=== PATIENT | female | born 1965 | race Caucasian/White ===

== ENCOUNTER 2016-11-30 22:51 | Emergency (ER) | payer OTHER ==
[2016-11-30 23:22] LABS: APPEARANCE CLEAR (CLEAR); BILIRUBIN NEGATIVE (NEGATIVE); COLOR YELLOW (YELLOW); GLUCOSE NEGATIVE (NEGATIVE); KETONE NEGATIVE (NEGATIVE); LEUKOCYTE ESTERASE NEGATIVE (NEGATIVE); NITRITE NEGATIVE (NEGATIVE); PROTEIN NEGATIVE (NEGATIVE); SPECIFIC GRAVITY 1.015 (1.005-1.020); UROBILINOGEN NORMAL (NORMAL)
[2016-11-30 23:22] LABS: BASOPHILS 0.3 % (0.0-2.0); HEMATOCRIT 41.2 % (36.0-48.0); HEMOGLOBIN 14.2 g/dL (12-16); IMMATURE GRANULOCYTES 0.2 % (0-5); LYMPHOCYTES 33.3 % (15-50); MCH 30.6 pg (26.0-34.0); MCHC 34.5 g/dL (31.0-37.0); MCV 88.8 fL (80.0-100.0); MEAN PLATELET VOLUME 9.9 fL (7.4-10.4); MONOCYTES 8.1 % (2-11); NEUTROPHILS 56.1 % (40-80); PLATELET COUNT 371 10x3/uL (130-400); RBC 4.64 10x6/uL (4.00-5.40); RDW 12.1 % (11.5-14.5); WBC 9.2 10x3/uL (4.8-10.8)
[2016-11-30 23:30] LABS: AMYLASE - SERUM 70 U/L (25-115); LIPASE 219 U/L (73-393)
== END 2016-12-01 00:25 | disposition home or self-care (01) ==
LOC: D.ER 22:51
PROVIDERS: Family Medicine
DX: K21.9 Gastro-esophageal reflux disease without esophagitis (principal); E11.9 Type 2 diabetes mellitus without complications; I10 Essential (primary) hypertension; E03.9 Hypothyroidism, unspecified

== ENCOUNTER 2017-03-13 06:35 | Day surgery (SDC) | payer BC ==
[~2017-03-13] VITALS: Ht 154.9 cm; Wt 74.8 kg
[2017-03-13 07:42] LABS: HEMATOCRIT 38.7 % (36.0-48.0); HEMOGLOBIN 13.1 g/dL (12-16); MCH 30.1 pg (26.0-34.0); MCHC 33.9 g/dL (31.0-37.0); MEAN PLATELET VOLUME 9.6 fL (7.4-10.4); RBC 4.35 10x6/uL (4.00-5.40); RDW 11.9 % (11.5-14.5); WBC 8.4 10x3/uL (4.8-10.8)
[2017-03-13 07:48] LABS: CALC OSMOLALITY 275 mosm/kg (275-300); CALCIUM 8.8 mg/dL (8.5-10.1); CARBON DIOXIDE 31.9 mmol/L (21.0-32.0); CHLORIDE - SERUM 100 mmol/L (98-107); CREATININE - SERUM 0.8 mg/dL (0.6-1.3); GLUCOSE 149 mg/dL (74-106); POTASSIUM - SERUM 3.6 mmol/L (3.5-5.1); SODIUM 136 mmol/L (136-145); UREA NITROGEN 15 mg/dL (7-18); eGFR NON AFRICAN AMERICAN 80 mL/min (90-120)
[2017-03-13] MEDS ORDERED: METFORMIN HCL500 M1 PO (08:01)
[2017-03-13] MEDS ORDERED: LISINOPRIL10 MG PO (08:02)
[2017-03-13] MEDS ORDERED: HCTZ25 MG PO (08:03)
[2017-03-13] MEDS ORDERED: TRI-EST (08:04)
[2017-03-13] MEDS ORDERED: SYNTHROID125 MCG PO (08:04)
[2017-03-13] MEDS ORDERED: PROZAC20 MG PO (08:05)
[2017-03-13] MEDS ORDERED: LIPITOR20 MG PO (08:05)
[2017-03-13] MEDS ORDERED: OMEPRAZOLE20 M1 PO (08:05)
[2017-03-13] MEDS ORDERED: PROBENECID500 MG PO (08:06)
[2017-03-13] MEDS ORDERED: VITAMIN D2000 UNIT (08:06)
[2017-03-13] MEDS ORDERED: MULTIPLE VITAMI1 TA1 PO (08:06)
[2017-03-13 08:13] VITALS: BP 116/84; Ht 154.9 cm; Wt 74.8 kg
--- NOTE | 2017-03-13 09:23 | NUR ---
NO COUNTS, PREP DONE R/T PROCEDURE. NO SCD R/T PROCEDURE
--- NOTE | 2017-03-13 09:29 | NUR ---
BOVIE PADS LEFT THIGH [id number] EXP [id number] EXP [id number]
--- NOTE | 2017-03-13 13:47 | NUR ---
1345--PT STATES THAT NAUSEA IS BETTER, LEMON PICAYUNE SODA GIVEN. WILL CONTINUE TO MONITOR. RAY RN
--- NOTE | 2017-03-13 15:12 | NUR ---
1510--PT VOIDS, IV SOCORRO'Carmen BELL RN
--- NOTE | 2017-03-13 15:18 | NUR ---
1230--PT OVER BASIN DRY HEAVING. DR SPARKS CONSULTED AND NEW ORDERS RECIEVED. RAY MARTINEZ 1240--DECADRON 10MG GIVEN SIVP OVER 5 MINUTES. RAY MARTINEZ 1245--PHENERGHAN 12.5MG GIVEN SIVP. RAY MARTINEZ
--- NOTE | 2017-03-13 15:42 | NUR ---
1535--DISCHARGE INSTRUCTIONS GIVEN, PT VERBALIZES UNDERSTANDING. PT OFF UNIT VIA CARRIE. RAY MARTINEZ
--- NOTE | 2017-03-20 09:43 | HP ---
PATIENT: ROCHELLE MALIK MEDICAL RECORD: [id number] ACCOUNT: [id number] LOCATION:DIndiaOPS : 67 ADMISSION DATE: 03/13/17 HISTORY AND PHYSICAL EXAMINATION HISTORY OF PRESENT ILLNESS: The patient has a gastric polypoid mass. I have reviewed the endoscopic photos. I have personally reviewed the endoscopic report. The risks, possible complications and alternatives to gastric polypectomy with the argon plasma chemical cell changer were explained to the patient. She elects to proceed. The discussion specifically included, but was not limited to, bleeding requiring emergency reoperation, infection, gastric perforation and possible need for additional operative procedure or endoscopic procedure. HOME MEDICINES: Metformin and also Synthroid. ALLERGIES: REGLAN AND DEMEROL. SOCIAL HISTORY: Nonsmoker. PAST MEDICAL AND SURGICAL HISTORY: Noninsulin-dependent diabetes mellitus, hypothyroidism, on replacement therapy, obesity, hysterectomy and gastric polyp. REVIEW OF SYSTEMS: Negative for CVA or seizures. Negative for renal disease or hepatitis. Review of systems is negative other than as is described above. PHYSICAL EXAMINATION: GENERAL: The patient does not appear acutely ill. She does not appear chronically ill. VITAL SIGNS: Reviewed. HEAD: External ears appear normal. EYES: Extraocular movements are intact. NECK: Trachea is midline. CHEST: No intercostal retractions. PULMONARY: Nonlabored, no stridor. ABDOMEN: Nontender. IMPRESSION: Gastric polyps, worrisome for malignancy. PLAN: As described above. TRANSINT:[id number] Voice Confirmation ID: [id number] DOCUMENT ID: [id number] CC: Mary Jo Grant [facility], [phone] HISTORY AND PHYSICAL [id number] ROCHELLE MALIK ROBERT MD at 0943 CC: MARIA ESTHER OHARA MD, MARY JO GRANT [facility] and JESSICA, [id number] DICTATION DATE: 03/13/17 1036 FIRE APPARATUS ENGINEER: 03/13/17 1155 [facility] 03/13/17 [address] [place] [address]
--- NOTE | 2017-03-20 09:43 | OP ---
PATIENT NAME: ROCHELLE MALIK MEDICAL RECORD: [id number] :67 LOCATION:D.[facility] ADMISSION DATE: SURGEON: CORBY CHAO MD DATE OF OPERATION: 03/13/2017 PREOPERATIVE DIAGNOSIS: Gastric polyps worrisome for a malignancy. POSTOPERATIVE DIAGNOSES: Gastric polyps worrisome for a malignancy with several diminutive sessile polyps as well all under 6 mm in size, also mild antral gastritis. PROCEDURES: 1. Esophagogastroduodenoscopy with biopsies. 2. Polypectomy with epinephrine injection at the base of the polyp, snare polypectomy, treatment of the base of the polyp with the argon plasma communications lead and reinforcement of the polypectomy site and hemostasis with 3 endoscopic clips, also endoscopic tattooing in order to better identify the polyp should a further operative procedure be necessary to resect the area if it proved to represent a malignancy. ENDOSCOPIC COURSE: The patient was conveyed to the endoscopy suite electively on 03/13/2017. General anesthesia was induced by anesthesia staff. A bite block was inserted. A gastroscope was inserted into the mouth. It was advanced easily into the hypopharynx. The esophagus was easily intubated as were the stomach and duodenum. Upon withdrawal, retroflexed and angulus views were obtained. Antral biopsies were obtained. I then identified the polyp. I advanced the sclerotherapy needle. An epinephrine injection of 3 cc epinephrine were used to get lift of the polyp away from the gastric wall and also for hemostasis. I then advanced an endoscopic snare. I then snared the polyp. I used the coagulation setting and then cut setting to remove the polyp. I then advanced an endoscopic retrieval net and retrieved the polyp in its entirety. The base of the polyp was ablated utilizing the argon plasma communications lead utilizing the stomach setting in the forced mode. I had to go cut deep in order to remove the entire polyp and there was some bleeding and for this reason, 3 endoscopic clips were used to close this weakened area in the gastric wall. It appeared that the polyp was along the greater curvature of the stomach and likely slightly anteriorly. In order to better identify it in the future, should an operative procedure be necessary. I advanced a sclerotherapy needle. I tattooed the base of the polyp with 3 cc of Denise ink. I then took the argon plasma communications lead. I coagulated 3 or 4 diminutive polyps without biopsying them. A retroflex view was obtained. I then unretroflexed the scope and removed it under direct vision. I will see the patient in my office in 2-3 weeks. At that time, we will review the results of the polypectomy. TRANSINT:[id number] Voice Confirmation ID: [id number] DOCUMENT ID: [id number] CC: Mary Jo Grant APN, [facility] [phone] OPERATIVE REPORT [id number] ROCHELLE MALIK, CORBY SAM at 0943 CC: MARIA ESTHER OHARA MD, MARY JO GRANT APN, [facility] and JESSICA, [id number] DICTATION DATE: 03/13/17 1041 GAUGE MACHINE OPERATOR: 03/13/17 1638 [facility] 03/13/17 [address] [place] [address]
== END 2017-03-13 15:35 | disposition home or self-care (01) ==
LOC: D.OPS 06:35 → D.PAN 09:00 → D.OPS 10:30
PROVIDERS: Anesthesiology
DX: K31.7 Polyp of stomach and duodenum (principal); K29.50 Unspecified chronic gastritis without bleeding; E11.9 Type 2 diabetes mellitus without complications; E03.9 Hypothyroidism, unspecified; E66.9 Obesity, unspecified; Z79.84 Long term (current) use of oral hypoglycemic drugs; Z79.899 Other long term (current) drug therapy; Z68.31 Body mass index [BMI] 31.0-31.9, adult

== ENCOUNTER → 2017-05-27 14:38 | Outpatient (CLI) | payer BC ==
[2017-03-13 08:13] VITALS: BMI 31.2
[~2017-05-27 14:38] MED LIST: HCTZ25 MG PO; LIPITOR20 MG PO; LISINOPRIL10 MG PO; METFORMIN HCL500 M1 PO; MULTIPLE VITAMI1 TA1 PO; OMEPRAZOLE20 M1 PO; PROBENECID500 MG PO; PROZAC20 MG PO; SYNTHROID125 MCG PO; TRI-EST; VITAMIN D2000 UNIT
== END | disposition home or self-care (01) ==
LOC: D.MAMMO 03-18 10:45
DX: Z12.31 Encounter for screening mammogram for malignant neoplasm of breast (principal)

== ENCOUNTER → 2017-09-24 08:38 | Outpatient (CLI) | payer BC ==
[2017-03-13 08:13] VITALS: BMI 31.2
[~2017-09-24 08:38] MED LIST changes: +GLUCOPHAGE500 MG PO
[2017-09-24 09:50] LABS: ALBUMIN 3.4 g/dL (3.4-5.0); BILIRUBIN - DIRECT 0.06 mg/dL (0.00-0.30); BILIRUBIN - INDIRECT 0.24 mg/dL (0.00-1.00); BILIRUBIN - TOTAL 0.3 mg/dL (0.2-1.3); PROTEIN - SERUM 7.7 g/dL (6.4-8.2)
== END | disposition home or self-care (01) ==
LOC: D.US 04-22 08:30
PROVIDERS: Internal Medicine Gastroenterology
DX: K76.0 Fatty (change of) liver, not elsewhere classified (principal)

== ENCOUNTER 2017-10-11 05:52 | Day surgery (SDC) | payer BC ==
[~2017-10-11] VITALS: Ht 154.9 cm; Wt 77.1 kg
[2017-10-11 06:39] LABS: HEMATOCRIT 38.5 % (36.0-48.0); HEMOGLOBIN 13.1 g/dL (12-16); MCH 29.3 pg (26.0-34.0); MCV 86.1 fL (80.0-100.0); MEAN PLATELET VOLUME 9.5 fL (7.4-10.4); RBC 4.47 10x6/uL (4.00-5.40); WBC 8.1 10x3/uL (4.8-10.8)
[2017-10-11 06:40] LABS: ANION GAP 13.6 mmol/L (8-16); CARBON DIOXIDE 28.8 mmol/L (21.0-32.0); CREATININE - SERUM 0.9 mg/dL (0.6-1.3); POTASSIUM - SERUM 3.4 mmol/L (3.5-5.1)
[2017-10-11 07:16] VITALS: BP 122/84; Ht 154.9 cm; Wt 77.1 kg
--- NOTE | 2017-11-07 13:26 | HP ---
PATIENT: ROCHELLE MALIK MEDICAL RECORD: [id number] ACCOUNT: [id number] LOCATION:DAVID : 67 ADMISSION DATE: 10/11/17 HISTORY AND PHYSICAL EXAMINATION PRINCIPAL DIAGNOSIS: Gastric polyps. HISTORY OF PRESENT ILLNESS: I have personally reviewed my endoscopic photos from last year. The patient had a semi-pedunculated polyp and this was treated with the argon plasma easement man as well as metallic clips and tattooing. Histologically, the polyp was a hyperplastic fundal polyp. It had focal atypia with intestinal metaplasia. Due to the size of the polyp and its atypia, I have elected for surveillance upper endoscopy with biopsies in 1 year. The patient has had no abdominal pain. No hemetemesis. No hematochezia. No melena. The risks, possible complications, and alternatives to procedure were explained to the patient. She elects to proceed. ALLERGIES: DEMEROL, REGLAN, AND SULFA. HOME MEDICINES: Omeprazole, metformin, Lipitor, Prozac, lisinopril, Synthroid, "hormones" as well as hydrochlorothiazide. PAST MEDICAL AND SURGICAL HISTORY: Recently diagnosed with sleep apnea, hypertension, gastroesophageal reflux which is controlled, nondependent diabetes mellitus which is a new diagnosis as well, hypothyroidism, postoperative nausea and vomiting, history of hysterectomy, history of cholecystectomy, history of gastric polyps. REVIEW OF SYSTEMS: Negative for CVA or seizures. Negative for renal disease or hepatitis. The review of systems is negative other than as is described above. PHYSICAL EXAMINATION: The entire physical examination was performed in the presence of a female nurse. GENERAL: The patient does not appear acutely ill. She does not appear chronically ill. VITAL SIGNS: Reviewed. HEAD: External ears appear normal. EYES: Extraocular movements are intact. NECK: Trachea is midline. CHEST: No intercostal retractions. PULMONARY: Nonlabored, no stridor. ABDOMEN: No peritonitis with movement. EXTREMITIES: No peripheral cyanosis. IMPRESSION: Complex gastric polyp, which has been tattooed. PLAN: Will be EGD with polypectomy and treatment with the argon plasma easement man. TRANSINT:[id number] Voice Confirmation ID: [id number] DOCUMENT ID: [id number] HISTORY AND PHYSICAL [id number] ROCHELLE MALIK, CORBY SAM at 1326 CC: MARIA ESTHER OHARA MD, GARY BRIAN MD and BEATA GREENBERG [phone] DICTATION DATE: 10/11/1718 PUBLIC AFFAIRS SPECIALIST: 10/11/17 1005 [facility] 10/11/17 [address] [place] [address]
--- NOTE | 2017-11-07 13:26 | OP ---
PATIENT NAME: ROCHELLE MALIK MEDICAL RECORD: [id number] :67 LOCATION:D.OPS ADMISSION DATE: SURGEON: CORBY CHAO MD DATE OF OPERATION: 10/11/2017 PREOPERATIVE DIAGNOSES: History of a complex gastric polyp. POSTOPERATIVE DIAGNOSES: History of a complex gastric polyp with no evidence of regrowth or persistence of the gastric polyp. PROCEDURES: 1. Esophagogastroduodenoscopy with antral biopsies to rule out Helicobacter pylori. 2. Biopsies of the scar around the tattooed area with retreatment utilizing the argon plasma junction maker. SURGEON: Corby Chao MD AUTOMATIC FANCY MACHINE OPERATOR: None. BLOOD LOSS: Minimal. ANESTHESIA: General. COMPLICATIONS: None. The risks, possible complications, and alternatives to the procedure were explained to the patient. She elected to proceed. OPERATIVE COURSE: The patient was conveyed to the operating room electively on 10/11/2017. General anesthesia was induced by the anesthesia staff. A bite block was inserted. A gastroscope was inserted into the mouth. It was advanced easily into the hypopharynx. The esophagus was easily intubated as were the stomach and duodenum. Upon withdrawal, retroflexed and angulus views were obtained. Antral biopsies were obtained. Biopsies circumferentially around the tattooed area were performed. I then retreated the area with the argon plasma junction maker utilizing the esophageal setting in the forced mode. The endoscope was then withdrawn under direct vision. I will see the patient in my office in 2-3 weeks. If there has been no histologic evidence of regrowth of the polyp, I will return the patient's surveillance upper endoscopy needs back over to Dr. Rider. TRANSINT:[id number] Voice Confirmation ID: [id number] DOCUMENT ID: [id number] CORBY CHAO MD at 1326 CC: GARY BRIAN MD and BEATA GREENBERG [id number] DICTATION DATE: 10/11/17920 SPORTS UMPIRE: 10/11/17 1154 [facility] 10/11/17 [address] [place] [address]
== END 2017-10-11 10:35 | disposition home or self-care (01) ==
LOC: D.OPS 05:52 → D.PAN 08:00 → D.OPS 10:35
PROVIDERS: Anesthesiology
DX: K31.7 Polyp of stomach and duodenum (principal); I10 Essential (primary) hypertension; K21.9 Gastro-esophageal reflux disease without esophagitis; G47.30 Sleep apnea, unspecified; E11.9 Type 2 diabetes mellitus without complications; E03.9 Hypothyroidism, unspecified; Z01.812 Encounter for preprocedural laboratory examination

== ENCOUNTER 2018-07-02 21:09 | Emergency (ER) | payer BC ==
[~2018-07-02] VITALS: Ht 157.5 cm; Wt 81.8 kg
[2018-07-02 21:21] VITALS: Ht 157.5 cm; Wt 81.8 kg
[2018-07-02] MEDS ORDERED: BIOTIN5 MG PO (21:25)
[2018-07-02] MEDS ORDERED: PROBIOTIC1 EAC1 PO (21:25)
[2018-07-03 01:24] VITALS: BP 126/74
== END 2018-07-03 01:24 | disposition home or self-care (01) ==
LOC: D.ER 21:09
DX: G43.909 Migraine, unspecified, not intractable, without status migrainosus (principal); E11.9 Type 2 diabetes mellitus without complications; I10 Essential (primary) hypertension

== ENCOUNTER → 2018-08-20 08:52 | Outpatient (CLI) | payer BC ==
[2018-07-02 21:21] VITALS: BMI 33.0
[~2018-08-20 08:52] MED LIST changes: +BIOTIN5 MG PO; +PROBIOTIC1 EAC1 PO
== END | disposition home or self-care (01) ==
LOC: D.US 08:30
DX: R74.8 Abnormal levels of other serum enzymes (principal)

== ENCOUNTER → 2021-04-27 07:33 | Outpatient (CLI) | payer OTHER ==
[2020-10-09 21:01] VITALS: BMI 33.0
[~2021-04-27 07:33] MED LIST changes: +ASPIRIN325 MG PO; +CRESTOR10 MG PO; +TOPAMAX50 MG PO
== END | disposition home or self-care (01) ==
LOC: D.US 04-25 08:00
PROVIDERS: ATTEND Internal Medicine Gastroenterology
DX: R10.13 Epigastric pain (principal)